=== PATIENT | male | born 1965 | race Caucasian/White ===

== ENCOUNTER 2016-09-24 15:20 | Inpatient (IN) | payer OTHER ==
--- NOTE | ~2016-09-24 | HP ---
Unit #: [id number] #: [id number] Patient: ZOË HAM [id number] [place] [address] [id number] MR#: [id number] NAME: ZOË HAM ROOM: 84 Age: 51 Sex: M Admission Date: 09/24/2016 : 1965 Attending Physician: Hemanth Zimmer M.D. Admitting Physician: Hemanth Zimmer M.D. Primary Care Physician: Primary Care Physician No HISTORY AND PHYSICAL HISTORY OF PRESENT ILLNESS Zoë is a 51 year old admitted to [facility] because of his illicit drug use. He shoots heroin. PAST MEDICAL HISTORY 1. History of illicit substance abuse to include IV heroin. 2. High blood pressure. PAST SURGICAL HISTORY Nothing reported. ALLERGIES No known drug allergies. SOCIAL HISTORY He denies cigarettes and alcohol. Admits to using marijuana on occasion. He has a history of opioid abuse to include IV heroin and methamphetamine. FAMILY HISTORY Medically noncontributory. He was released from nursing home a year ago and remains on supervised parole. REVIEW OF SYSTEMS CONSTITUTIONAL: No fever or chills. HEENT: Denies any sore throat, ear pain or runny nose. CARDIOVASCULAR: Denies chest pain, irregular heart rhythm or palpitations. CHEST: Denies shortness of breath or cough. No hemoptysis. GASTROINTESTINAL: Denies nausea, vomiting, diarrhea or chronic constipation. ENDOCRINE: Denies history of increased thirst or urination. No recent significant weight loss or gain. GENITOURINARY: Denies dysuria, frequency, or hematuria. SKIN: Denies any rashes. HEMATOLOGIC: Denies history of increased bleeding or bruising. MUSCULOSKELETAL: Denies any hot, swollen joints. No generalized muscle pain. NEUROLOGIC: Denies problems with vision or speech. No frequent, severe headaches. No numbness, tingling or weakness in any extremities. Denies loss of bladder or bowel control. CURRENT MEDICATIONS 1. Detox protocol. 2. Celexa 20 mg q. day. Unit #: [id number] #: [id number] Patient: ZOË HAM PHYSICAL EXAMINATION GENERAL: Alert, obese. No apparent distress. VITAL SIGNS: Blood pressure 160/110, heart rate 80, respirations 16, and temperature 98.6. WEIGHT: 235. HEIGHT: 5 feet 5 inches. SKIN: Warm and dry without rash or lesion. HEENT: Normocephalic. TMs not viewed. Oral and nasal passages clear. Conjunctivae clear. PERRLA. EOMs intact. NECK: Supple without lymphadenopathy or thyromegaly. HEART: Regular rate and rhythm without murmur. LUNGS: Clear. ABDOMEN: Soft, nontender. : Not done. EXTREMITIES: No evidence of cyanosis, clubbing or edema. Moves all without focal deficit. NEUROLOGICAL: Grossly within normal limits. Cranial Nerves: II: Visual quesada are intact. III, IV AND : Extraocular movements are intact. Pupils are equal, round and reactive to light. V: Facial sensation is grossly normal. VII: Facial movements and expression are normal. VIII: Auditory acuity grossly intact. IX, X: Uvula is midline. Phonation is normal. XI: Patient shrugs shoulders and turns head normally. XII: Tongue protrudes in the midline. Sensory and Motor Function: Sensory and motor sensation is grossly normal. Motor: moves all extremities well. Coordination: Gait is normal. Deep Tendon Reflexes: Intact. IMPRESSION 1. Psychiatric admission. 2. History of illicit substance abuse to include IV drugs. 3. High blood pressure, not controlled on admission. He is admitted on no blood pressure medications. RECOMMENDATIONS PSYCHIATRIC: Per psychiatrist. MEDICAL: 1. I see no contraindication to participate in this facility's activities. 2. Detox per protocol. 3. Start Norvasc 5 mg 1 p.o. q. day. MEDICAL PROGNOSIS Good. MEDICAL CONDITION Stable. Dictated by... Michael Hall-Bruno. for Demarco Danielle/ramsey Unit #: [id number] #: [id number] Patient: ZOË HAM TD: 09/25/2016 14:59 JOB #: [id number] HISTORY AND PHYSICAL Page 1 of 1 X Christy Queen HISTORY AND PHYSICAL
--- NOTE | ~2016-09-24 | DS ---
Unit #: [id number] #: [id number] Patient: ZOË HAM [id number] [facility] [address] [place] [address] [id number] MR#: [id number] NAME: ZOË HAM ROOM: [facility] Age: 51 Sex: M Admission Date: 09/24/2016 : 1965 Discharge Date: 09/28/2016 Attending Physician: Hemanth Zimmer M.D. DISCHARGE SUMMARY REASON FOR ADMISSION Depression and opioid abuse. DIAGNOSTIC STUDIES LABORATORY RESULTS: Remarkable for urine drug screen positive for benzodiazepine, amphetamine, marijuana, and opioid. HISTORY OF PRESENT ILLNESS Mr. Zëo Ham is a 51-year-old male, admitted with depression, opioid abuse, and marijuana abuse. The patient was treated on the inpatient unit with group therapy, individual therapy, and medication management. The patient responded well with the above modalities of treatment, detox protocol, and detox monitoring. Subsequently, the patient was discharged with a plan to follow up in outpatient program. DISCHARGE MEDICATIONS Zyprexa 10 mg at bedtime for mood stabilization. DISCHARGE DIAGNOSES Psychiatric: 1. Mood disorder, not otherwise specified. 2. Opioid use disorder, severe. 3. Sedative-hypnotic use disorder, severe. 4. Cannabis abuse, severe. 5. Amphetamine use disorder, severe. Secondary diagnosis: Deferred. Medical diagnosis: None. Stressors: Psychosocial stressors. DISCHARGE INSTRUCTIONS The patient is to follow up in outpatient clinic as per web content & social media manager. CONDITION ON DISCHARGE The patient was pleasant and cooperative. Denied any psychotic symptom or any suicidal ideation. PROGNOSIS Guarded. DIET AND ACTIVITY As tolerated. Unit #: [id number] #: [id number] Patient: ZOË HAM Dictated by... Demarco Redman/sharyn TD: 09/28/2016 15:58 JOB #: [id number] DISCHARGE SUMMARY Page 1 of 1 X Hemanth Zimmer MD X DISCHARGE SUMMARY
--- NOTE | ~2016-09-24 | PN ---
Unit #: [id number] #: [id number] Patient: ZOË HAM [id number] [facility] [address] [place] [address] [id number] MR#: [id number] NAME: ZOË HAM ROOM: [facility] Age: 51 Sex: M Admission Date: 09/24/2016 : 1965 Attending Physician: Hemanth Zimmer M.D. Admitting Physician: Hemanth Zimmer M.D. Primary Care Physician: Primary Care Physician Amelia BEDOLLA NOTES DATE 09/25/2016 DISCUSSION Zoë Ham is a 51-year-old male. The patient interviewed, chart reviewed, and obtained information from the nursing staff. The patient continues to show withdrawal symptoms, anxious, nervous, and depressed, restlessness of his legs, severe anxiety, mood lability, isolative, guarded. The patient's vital signs, 98.1, 79, and 161/111. REVIEW OF SYSTEMS Complete review of systems unremarkable. MENTAL STATUS EXAMINATION General appearance: Patient dressed casually. Attention span and concentration, fair. Oriented to place and person. Mood and affect, labile. Speech, monotone. Thought process, concrete. The patient denied any thoughts of harming self or others or but guarded, withdrawn, isolative, seclusive. Recent and remote memory, poor. Insight and judgment, poor. DIAGNOSIS Opiate use disorder, severe, F11.20. ASSESSMENT/PLAN Advised to continue with the current medication and therapeutic protocol and will monitor response to medication, and make further adjustment of medication. Dictated by... Demarco Redman/otilio TD: 09/27/2016 09:58 JOB #: [id number] Unit #: [id number] #: [id number] Patient: ZOË HAM PROGRESS NOTES Page 1 of 1 X Hemanth Zimmer MD PROGRESS NOTE
--- NOTE | ~2016-09-24 | PA ---
Unit #: [id number] #: [id number] Patient: ZOË HAM [id number] [facility] [address] [place] [address] [id number] MR#: [id number] NAME: ZOË HAM ROOM: [facility] Age: 51 Sex: M Admission Date: 09/24/2016 : 1965 Date of Assessment: 09/25/2016 Attending Physician: Hemanth Zimmer M.D. Admitting Physician: Hemanth Zimmer M.D. Primary Care Physician: Primary Care Physician No PSYCHIATRIC ASSESSMENT INFORMANTS The patient reliability, fair informant and chart reliability, good. CHIEF COMPLAINT Depression and opioid abuse. HISTORY OF PRESENT ILLNESS Mr. Zoë Ham is a 51-year-old male, seen on with the above-mentioned complaint. The patient reported having suicidal ideation with a plan to get a gun. The patient reported taking heroin IV daily. Reported thoughts of killing himself. The patient reported using heroin IV for 3 months daily. The patient reported withdrawal symptoms. Currently, reporting 9 on COWS. The patient denied any homicidal ideation or any psychotic symptom. PAST PSYCHIATRIC HISTORY Remarkable for history of previous treatment, details are unknown at this time. FAMILY HISTORY AND SOCIAL HISTORY The patient has poor support system. No history of any abuse. 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 MEDICAL HISTORY Remarkable for history of hypertension and pain in his ribs. MEDICATION HISTORY The patient is on Neurontin. ALLERGIES No known drug allergies. SUBSTANCE ABUSE HISTORY The patient reported marijuana abuse, occasional and opioid, age of onset 50. REVIEW OF SYSTEMS HEENT: Eyes, clear. Ears, nose, mouth, and throat; clear. CARDIOVASCULAR: Unremarkable. RESPIRATORY: Unremarkable. GI: Unremarkable. : Unremarkable. Unit #: [id number] #: [id number] Patient: ZOË HAM SKIN: Unremarkable. LYMPH NODE: Unremarkable. NEUROLOGIC: Unremarkable. ENDOCRINE: Unremarkable. HEMATOLOGIC: Unremarkable. ALLERGIC/IMMUNOLOGIC: Unremarkable. MUSCULOSKELETAL: Muscle strength and tone, no atrophy or abnormal movement. Gait normal. MENTAL STATUS EXAMINATION CONSTITUTIONAL: Measurement of vital signs; temperature 98.2, heart rate 79, respiratory rate 16, blood pressure 161/111, height 5 feet 5 inches, and weight 235 pounds. GENERAL APPEARANCE: The patient dressed casually. The patient did not show any facial deformity. MUSCULOSKELETAL: Please see above. PSYCHIATRIC EXAMINATION Description of speech; regular rate, normal volume, normal articulation, coherent, and spontaneous. Description of thought process, goal directed. Description of association, intact. Description of abnormal psychotic thinking; guarded, paranoid, mood lability, substance abuse, and suicidal ideation. Description of the patient's judgment: Concerning everyday activity, poor. Social situation, poor. Concerning psychiatric condition, poor. The patient denied any homicidal ideation. Complete mental status examination; oriented in time, place, and person. Recent and remote memory, fair. Attention span and concentration, fair. Language, able to name object and repeat phrases. Fund of knowledge, aware of current event and passive vocabulary intact. Mood and affect, sad and dysphoric. Insight and judgment, fair to poor. ASSETS AND LIABILITIES Assets, the patient is articulate and able to take care of his ADL. Liability, history of depression and substance abuse. ADMITTING DIAGNOSES Psychiatric: Major depressive disorder, recurrent, F33.2 and opioid use disorder, severe, F11.20. Secondary diagnosis: Deferred. Medical diagnosis: Please refer to H and P. Stressors: Psychosocial stressors. PSYCHIATRIC PLAN AND TREATMENT GOAL AND DISCHARGE PLAN 1. Advised to admit the patient on the inpatient unit. Provide safe, supportive, and structured environment. 2. Ordered labs; CBC, CMP, UA, and UDS. 3. Precaution for aggression and self-harm. 4. Detox protocol and detox monitoring. The patient to attend all the programing on the inpatient unit. If needed, consider further adjustment of medication. TREATMENT GOAL To attain euthymic mood, gain insight into his problem, and learn coping skills. Unit #: [id number] #: [id number] Patient: ZOË HAM DISCHARGE PLAN Plan to stabilize the patient and consider followup in outpatient program. ESTIMATED LENGTH OF STAY 5 days. Dictated by... Hemanth Zimmer M.D. MAGDY/sharyn TD: 09/25/2016 15:50 JOB #: [id number] PSYCHIATRIC ASSESSMENT Page 1 of 1 X Hemanth Zimmer MD X PSYCHIATRIC ASSESSMENT
--- NOTE | ~2016-09-24 | PN ---
Unit #: [id number] #: [id number] Patient: ZOË HAM [id number] [facility] [address] [place] [address] [id number] I MR#: [id number] NAME: ZOË HAM ROOM: [facility] Age: 51 Sex: M Admission Date: 09/24/2016 : 1965 Attending Physician: Hemanth Zimmer M.D. Admitting Physician: Hemanth Zimmer M.D. Primary Care Physician: Primary Care Physician Amelia BEDOLLA NOTES DATE OF SERVICE 09/26/2016 DISCUSSION Zoë Ham is a 51-year-old male. The patient interviewed, chart reviewed. Obtained information from nursing staff. The patient continues to be seclusive, isolative, sad, depressed, flat affect, withdrawn, currently on detox protocol. Complete Review of Systems: Unremarkable. MENTAL STATUS EXAMINATION General Appearance: The patient dressed casually. Attention span, concentration: Fair. Oriented in place and person. Mood and affect: Sad, dysphoric, withdrawn, isolative, guarded. The patient's vital signs: 98.6, 64, 163/102. Thought process: Well coherent. The patient denied any thoughts of harming self or others but guarded, seclusive, isolative, having withdrawal symptoms as mentioned above. Recent and remote memory: Poor. Insight and judgment: Poor. DIAGNOSES 1. Opiate use disorder, severe. 2. Mood disorder not otherwise specified. ASSESSMENT/PLAN Advised to continue with current medication and therapeutic protocol. We will monitor her response to medication and make further adjustment of medication. Also, advised Celexa 20 mg daily for mood symptom. Dictated by... Demarco Redman/ramsey TD: 09/27/2016 10:05 JOB #: [id number] Unit #: [id number] #: [id number] Patient: ZOË HAM GRAEME NOTES Page 1 of 1 X Hemanth Zimmer MD PROGRESS NOTE
--- NOTE | ~2016-09-24 | PN ---
Unit #: [id number] #: [id number] Patient: ZOË HAM [id number] [facility] [address] [place] [address] [id number] MR#: [id number] NAME: ZOË HAM ROOM: [facility] Age: 51 Sex: M Admission Date: 09/24/2016 : 1965 Attending Physician: Hemanth Zimmer M.D. Admitting Physician: Hemanth Zimmer M.D. Primary Care Physician: Primary Care Physician Amelia DENT PROGRESS NOTES DATE 09/27/2016 DISCUSSION Zoë Ham is a 51-year-old male seen on 09/27/2016. Patient interviewed. Chart reviewed. Obtained information from nursing staff. Patient continues to feel sad, depressed, withdrawn, isolative. Still having withdrawals from the opiate. Patient seen on 09/27/2016. Zoë Ham was compliant, cooperative. Mood sad, dysphoric, flat affect, withdrawn, isolative, guarded. Patient reported having racing thoughts. Reported that he was diagnosed with ADHD. Patient's speech was pressured. Mood was labile, somewhat agitated. Patient was started on Celexa yesterday. Complete review of system unremarkable. MENTAL STATUS EXAMINATION General appearance, patient dressed casually. Attention span, concentration poor. Oriented in place and person. Mood and affect was labile. Speech rapid, pressured. Thought process circumstantial. Patient denied any thoughts of harming self or others but guarded, paranoid. Recent and remote memory poor. Insight and judgement poor. DIAGNOSES 1. Opiate use disorder, severe. 2. Cannabis abuse disorder, severe. 3. Amphetamine use disorder, severe. 4. Benzodiazepine abuse, moderate to severe. 5. Mood disorder NOS. 6. Rule out bipolar mood disorder. ASSESSMENT/PLAN Advised to continue with current medication with a plan to start patient on Zyprexa 5 mg as one dose now and Zyprexa 10 mg at bedtime. Advised to discontinue Celexa. Continue with the detox protocol. If needed, consider further adjustment of medication. Dictated by... Hemanth Zimmer M.D. MAGDY/chadd Unit #: [id number] #: [id number] Patient: ZOË HAM TD: 09/28/2016 21:53 JOB #: [id number] [facility] PROGRESS NOTES Page 1 of 1 X Hemanth Zimmer MD PROGRESS NOTE
[~2016-09-24 15:20] MED LIST: ADDERALL PO; CIPRO PO; FLEXERIL PO; FLOMAX0.4 M1 DOB; KEFLEX500 M2 PO; KEFLEX500 MG PO; LORTAB 5-325 M1 EACH PO; LORTAB 5/500 TA1 TA1 PO; NO MEDICATIONS; PERCOCET 5-3251 TAB PO; PHENERGAN25 MG PO; SILVADENE TOP; VICODIN 5/500 T1 TAB PO; VOLTAREN50 MG PO; XANAX PO; ZOVIRAX800 MG PO; [UNRECOGNIZED DRUG - OTHER] PO
[2016-09-25 09:53] LABS: THYROID STIMULATING HORMONE 0.14 uIU/ml (0.34-5.60)
[2016-09-25 10:00] LABS: FREE THYROXIN (T4) 1.01 ng/dL (0.58-1.64)
[2016-09-25 10:21] LABS: ALBUMIN SERUM 3.2 g/dL (3.5-5.0); ALKALINE PHOSPHATASE 100 U/L (32-92); ALT (SGPT) 521 U/L (10-40); AST (SGOT) 375 U/L (10-42); BILIRUBIN,TOTAL 0.4 mg/dL (0.2-2.0); BLOOD UREA NITROGEN 16 mg/dL (9-23); CALCIUM SERUM 9.1 mg/dL (8.4-10.2); CARBON DIOXIDE 29 mmol/L (22-31); CHLORIDE 105 mmol/L (100-111); GLOM FILT RATE Estimated ABOVE60 mL/min (>60); GLUCOSE FASTING 104 mg/dL (70-110); POTASSIUM 5.1 mmol/L (3.5-5.1); PROTEIN TOTAL SERUM 6.8 g/dL (6.0-8.3); SODIUM 140 mmol/L (135-145)
[2016-09-26 09:42] LABS: URINE APPEARANCE CLEAR; URINE BILIRUBIN NEG (NEG); URINE BLOOD NEG (NEG); URINE COLOR YELLOW; URINE GLUCOSE NEG (NEG); URINE KETONE NEG (NEG); URINE LEUKOCYTE ESTERASE NEG (NEG); URINE NITRATE NEG (NEG); URINE PROTEIN NEG (NEG)
[2016-09-30 07:35] LABS: HA AB IGM (HEPPAN) Nonreactive (Nonreactive); HB CORE AB IGM (HEPPAN) Nonreactive (Nonreactive); HB S AG (HEPPAN) Nonreactive (Nonreactive); HEP C AB (HEPPAN) Nonreactive (Nonreactive); HEP C AB SIGNAL TO CUTOFF 0.17 ratio (<1.00)
== END 2016-09-28 11:10 | disposition home or self-care (01) | DRG 885 ==
LOC: P1E 15:20
PROVIDERS: Physician Assistant Medical; Psychiatry & Neurology Psychiatry
PROC: HZ2ZZZZ Detoxification Services for Substance Abuse Treatment (ICD-10-PCS; principal; 2016-09-24)
DX: F39 Unspecified mood [affective] disorder (principal); F11.20 Opioid dependence, uncomplicated; F15.20 Other stimulant dependence, uncomplicated; F13.20 Sedative, hypnotic or anxiolytic dependence, uncomplicated; F12.20 Cannabis dependence, uncomplicated
CPT/HCPCS: 80053; 80074; 81003; 84439; 84443; 86592